=== PATIENT | female | born 1955 | race Caucasian/White ===

== ENCOUNTER 2018-08-17 11:40 | Emergency (ER) | payer OTHER ==
[~2018-08-17] VITALS: Ht 157.5 cm; Wt 99.0 kg
[2018-08-17] MEDS ORDERED: METO25 PO (12:05)
[2018-08-17] MEDS ORDERED: LISI-660 PO (12:05)
[2018-08-17] MEDS ORDERED: SITA25 PO (12:05)
[2018-08-17 12:20] LABS: GLUCOSE,POINT OF CARE 89 MG/DL (70-110)
[2018-08-17] MEDS ORDERED: KETOROLAC TROMETHAMINE 60 MG/2 ML VIAL IM ONE (13:45)
[2018-08-17 13:58] LABS: BASOPHILS % (AUTO) 0.6 % (0.0-2.0); HEMOGLOBIN 13.1 g/dL (12.0-16.0); LYMPHOCYTES # (AUTO) 2.7 K/uL (1.0-4.8); LYMPHOCYTES % (AUTO) 32.2 % (22.0-44.0); MEAN CORPUSCULAR HEMOGLOBIN 27.6 pg (26.0-34.0); MEAN CORPUSCULAR HGB CONC 33.7 G/dL (31.0-37.0); MEAN CORPUSCULAR VOLUME 82 fL (80-100); MONOCYTES # (AUTO) 0.6 K/uL (0.1-1.0); MONOCYTES % (AUTO) 7.1 % (2.0-9.0); NEUTROPHILS # (AUTO) 4.8 K/uL (1.8-7.7); NEUTROPHILS % (AUTO) 57.1 % (40.0-70.0); PLATELET COUNT (AUTO) 185 K/uL (150-450); RED BLOOD CELL COUNT(AUTO) 4.76 MIL/uL (4.00-5.20); RED CELL DISTRIBUTION WIDTH 13.2 % (11.5-14.5)
[2018-08-17] MEDS ORDERED: ONDANSETRON HCL 4 MG TABLET PO ONE (14:00)
[2018-08-17 14:09] LABS: ANION GAP 9 mmol/L (8-16); CALCIUM, TOTAL 9.3 mg/dL (8.8-10.5); CARBON DIOXIDE 27 mmol/L (22-29); CHLORIDE 103 mmol/L (98-107); CREATININE 0.67 mg/dL (0.60-1.30); GLOMERULAR FILTR. RATE CALC > 60 mL/min (>60); GLUCOSE,RANDOM 84 mg/dL (70-110); POTASSIUM 3.9 mmol/L (3.5-5.1); SODIUM SERUM 139 mmol/L (136-145); UREA NITROGEN, BLOOD 19 mg/dL (7-18)
[2018-08-17 14:15] LABS: ALANINE AMINOTRANSFERASE 47 U/L (12-78); ALBUMIN 3.2 g/dL (3.4-5.0); ALKALINE PHOSPHATASE 87 U/L (46-116); ASPARTATE AMINOTRANSFERASE 28 U/L (15-37); BILIRUBIN,TOTAL 0.3 mg/dL (0.1-1.0); TOTAL PROTEIN, SERUM 7.6 g/dL (6.4-8.2)
[2018-08-17 14:25] LABS: INR 0.9 (0.9-1.1); PROTHROMBIN TIME 9.5 SEC (9.4-11.6)
[2018-08-17 15:43] VITALS: BP 112/71
== END 2018-08-17 15:55 | disposition home or self-care (01) ==
LOC: EMS 11:40
DX: G44.209 Tension-type headache, unspecified, not intractable (principal); E11.9 Type 2 diabetes mellitus without complications; I10 Essential (primary) hypertension; F32.9 Major depressive disorder, single episode, unspecified; Z79.899 Other long term (current) drug therapy
CPT/HCPCS: 36415; 70450; 80053; 82962; 85025; 85610; 96372; 99284; J1885; Q0162